=== PATIENT | female | born 1985 | race Caucasian/White ===

== ENCOUNTER 2016-07-11 09:29 | Emergency (ER) | payer BC, MEDICAID, OTHER ==
[2016-07-11 09:45] VITALS: RESP 16; TEMP 98.8
[2016-07-11] MEDS ORDERED: KETOROLAC 60 MG/2 ML VIAL IM ONE (09:46)
--- NOTE | 2016-07-11 10:00 | PDOC ---
Back Pain / Injury HPI - General Chief Complaint: Neck / Back Complaint Stated Complaint: BACK PAIN Date Seen by Provider: 07/11/16 Time Seen by Provider: 09:45 Source: Patient Exam Limitations: POSITIVE: No limitations Nurse's Notes Reviewed & Considered: Yes - History of Present Illness Initial Comments: The patient is a 31-year-old female who presents to the emergency department with low back pain. She states that yesterday evening she bent over to replace a toilet paper roll when she developed a pain in her lower back. This has progressively worsened to the point where she can barely move. She states that off and on for the past year and a half she has had some problems with low back pain and stiffness. She has been seeing a chiropractor intermittently. She states that she has never had pain to this degree. Her pain is localized to her lower back and is slightly more prominent on the left side this morning. She does not have any radiation of pain into her legs and denies any numbness, tingling or weakness in her legs. She states that she is having a difficult time moving her leg secondary to pain. She denies any urinary symptoms or difficulty with urination. She has not had any other systemic symptoms. She has no prior history of back surgery. She has been taking ibuprofen and Tylenol without any pain relief. Her pain is primarily worsened with any attempts at bending or movement of her legs. She also has pain with sitting. - Patient Home Medications Home Medications: Home Medications Acetaminophen [Tylenol] 1,000 mg PO Q4H PRN PRN 07/11/16 Cyclobenzaprine HCl [Flexeril] 10 mg PO TID PRN #20 tab 07/11/16 Diclofenac Sodium [Voltaren] 75 mg PO Q12H PRN #20 tablet. 07/11/16 HYDROcodone/APAP 5/325 Tab [Halliday 5/325 Tab] 1 each PO Q6H PRN #10 tablet Ibuprofen 800 mg PO Q6H PRN PRN 07/11/16 - Patient Allergies Allergies/Adverse Reactions: Allergies Allergy/AdvReac Type Severity Reaction Status Date / Time sulfamethoxazole Allergy hives Verified 07/11/16 09:37 [From Bactrim] trimethoprim [From Bactrim] Allergy hives Verified 07/11/16 09:37 Past Medical History - heen HEENT History: Denies History Cardiovascular History: Denies History Respiratory History: Denies History Gastrointestinal History: Denies History Genitourinary History: Denies History Endocrine History: Denies History Musculoskeletal History: Denies History Neurological History: Denies History Blood Disorders: Denies History Psychiatric History: Denies History Female Reproductive History: Denies History LMP: 07/03/16 Obstetrical History: Denies History Cancer History: Denies History In Past Year Been Physically Harmed or Verbally Threatened: No History of MDRO: No Tobacco Use: Never Smoker Alcohol Use: Rarely Substance Use Type: None Previous Surgical History: Yes Type / Date of Surgery: BREAST AUGMENTATION Significant Family History: No pertinent family hx Past Medical History Reviewed: Reviewed - No Changes ROS - Limitations ROS Limitations: No Limitations Constitution: REPORTS: Chills (She did have some chills associated with significant pain last night). DENIES: Fever Cardiovascular: REPORTS: Denies Cardiac Symptoms Respiratory: REPORTS: Denies Resp Symptoms Neurological: DENIES: Tingling, Numbness, Weakness Gastrointestinal: DENIES: Abdominal Pain, Nausea, Vomitting Musculoskeletal: REPORTS: Back Pain. DENIES: Lower Extremity Swelling Genitourinary: DENIES: Dysuria, Flank Pain, Hematuria, Difficulty Urinating Eyes: REPORTS: Denies Symptoms ENT: REPORTS: Denies Symptoms Skin: DENIES: Rash Back Physical Assessment - General Appearance General Appearance: REPORTS: Alert, Cooperative, No Acute Distress - HEENT HEENT: POSITIVE: Head Inspection Nml - Neck Neck: POSITIVE: Painless ROM, Trachea Midline - Respiratory / CVS Respiratory / CVS: POSITIVE: Breath Sounds Normal, No Respiratory Distress, Heart Sounds Normal, Regular Rate/Rhythm - Abdomen Abdomen: Denies Tenderness: (All Quadrants), No Distention: (All Quadrants) - Back Back: REPORTS: Normal Inspection, No CVA Tenderness, Other (Her lower spine is not really tender to palpation and her pain is primarily elicited with movement) - Skin Skin: REPORTS: Intact, No Rash - Extremities Extremity Assessment: No Edema: (ALL) - Neurological / Psychological Neuro / Psych: POSITIVE: Oriented X3, Motor Normal, Sensation Normal, Other ( She has no motor weakness or sensory loss in the lower extremities, she does have increased lower back pain with flexion at the knee against resistance bilaterally, some pain with lifting her left leg off the table however no radicular symptoms) Reflexes: Achilles (R): 3+, Achilles (L): 3+, Patellar (R): 3+, Patellar (L): 3+ Back Progress - Results Reviewed by me Xrays/CTs/US Reviewed: Yes Radiology Findings: X-ray of the lumbar spine reveals a the curvature of the lower spine, she does have disc space narrowing at the L5-S1 level with some degenerative changes in the lower lumbar region, no acute fracture. Lab Results:: Laboratory Results 07/11/16 Range/Units 10:36 Ur Collection Type Clean catch urine Urine Color Yellow Urine Clarity Clear (CLEAR) Urine pH 6.0 (5.0-8.5) Ur Specific [place] 1.020 (1.005-1.030) Urine Protein Trace (NEG) mg/dl Urine Glucose (UA) Negative (NEG) mg/dL Urine Ketones Negative (NEG) Urine Occult Blood Small H (NEG) Urine Nitrate Negative (NEG) Urine Bilirubin Negative (NEG) Urine Urobilinogen 0.2 (0.2) EU/dL Ur Leukocyte Esterase Negative (NEG) Urine RBC 3-6 (NONE) /hpf Urine WBC 1-3 (NONE) Ur Squamous Epith Cells Few (NONE) Ur Renal Epithelial Cell None (NONE) Urine Crystals None Urine Bacteria Few (NONE) Urine Casts None (NONE) Urine Mucus Few (NONE) Urine Trichomonas None (NONE) Urine Yeast None (NONE) Ur Culture Indicated? Culture not set - Patient's Progress MDM / ED Course: The patient did receive Toradol 60 mg and Norflex 60 mg IM. She was starting to get some slight relief. X-ray findings were discussed with the patient. At this point I would recommend continuation of chiropractor and/or trial of physical therapy. She was also prescribed Voltaren 75 mg twice a day as an anti -inflammatory, Flexeril 10 mg every 8 hours as needed for pain/spasm as well as Halliday 5/325 one every 6 hours as needed for pain unrelieved with other medications. She is advised return to the emergency room if she develops increased pain, numbness or weakness in her legs, fever, any worsening or change in symptoms. She will follow-up with her primary care provider in 3-5 days. - Consult Counseled: POSITIVE: Patient, RE: Radiology Results, RE: DX, RE: Need for F/U Patient Care Time - Estimated PCT Patient Care Time (In Minutes): 15 Vital Signs - Recent Vital Signs Vital Signs: Vital Signs (Last 8 hours) Temp Pulse Resp BP Pulse Ox 07/11/16 09:40 98.8 F 106 H 16 116/95 96 - VS Reviewed Vital Signs Reviewed: Yes Discharge Clinical Impression: Acute low back pain Discharge Disposition: Discharged to Home Condition: Stable Prescriptions / Orders: Cyclobenzaprine HCl [Flexeril] 10 mg PO TID PRN #20 tab PRN Reason: Spasms HYDROcodone/APAP 5/325 Tab [Halliday 5/325 Tab] 1 each PO Q6H PRN #10 tablet PRN Reason: Pain Diclofenac Sodium [Voltaren] 75 mg PO Q12H PRN #20 tablet. PRRivka Reason: Pain Patient Instructions Given at Discharge: Back Pain (ED) Additional Instructions: The x-ray of your lower spine does reveal some degenerative disc disease at the L5-S1 level, there is also some curvature of the lower spine which may be secondary to current pain and spasm or could represent some minor scoliosis. Recommend Voltaren 75 mg twice a day as an anti-inflammatory. In addition you have been prescribed Flexeril 10 mg every 8 hours as needed for spasm/pain. You 've also been prescribed Halliday 5/325 which he can take one every 4-6 hours as needed for severe pain unrelieved with the other medication. Would recommend continued chiropractor and/or physical therapy. Return to the emergency room if increased pain, fever, numbness or weakness in your legs, any worsening or change in symptoms. Recommend follow-up with primary care in 3-5 days. Follow Up With: CONCHA OSEI FNP [Primary Care Provider] -
[2016-07-11 10:50] LABS: BILIRUBIN,URINE NEGATIVE (NEG); CLARITY,URINE CLEAR (CLEAR); COLOR,URINE YELLOW; GLUCOSE, URINE (UA) NEGATIVE (NEG); NITRATE,URINE NEGATIVE (NEG); OCCULT BLOOD,URINE SMALL (NEG); PROTEIN,URINE TRACE mg/dl (NEG); URINE SAMPLE TYPE CLEAN CATCH URINE
[2016-07-11 10:51] LABS: BACTERIA,URINE FEW; SQUAMOUS EPITHELIAL CELL,UR FEW; UROBILINOGEN,URINE 0.2 EU/dL (0.2)
--- NOTE | 2016-07-11 10:55 | DI ---
XR L-SPINE 2-3 VW,07/11/2016 9:47 AM: Clinical History: Low back pain Previous Exam: None at this facility. Findings: AP and lateral views of the lumbar spine are obtained, and demonstrate near complete loss of interver tebral disc height at the L5/S1 level. There is also a small calcification within the inferior pole of the left nephrogram measuring 6 mm. There is some dextroscoliosis of the lumbar spine centered at the L4 level. Moderate stool seen throughout the colon. There is a intrauterine device seen within the deep pelvis. Impression: Degenerative disc disease of the L5/S1 level. 6 mm calcification overlying the inferior pole left kidney most consistent with a renal parenchymal s tone.
== END 2016-07-11 10:51 | disposition home or self-care (01) ==
LOC: ER 09:29
DX: M54.5 Low back pain (principal); M51.37 Other intervertebral disc degeneration, lumbosacral region
CPT/HCPCS: 72100; 81001; 81003; 96372; 99283 ×2; J1885; J2360

== ENCOUNTER → 2016-12-05 | Outpatient (CLI) | payer OTHER ==
--- NOTE | 2016-12-05 12:12 | DI ---
History: Breast lump, right side Comparison: None Findings: In the 8 to 9:00 position of the breast, there is a 0.7 x 0.4 cm cystic lesion, and a 0.4 x 0.4 cm cy stic lesion. The juárez of both lesions are imperceptible, and the lesions are anechoic. There is through transmiss ion demonstrated the larger of the 2 lesions. I cannot see through transmission of the smaller lesion, but accurate sonographic evaluation of a 4 mm cystic lesion is difficult. There is no posterior shadowing, and I believe that this likely repres ents a cyst which can safely be followed. There are no echogenic lesions. Impression: 0.7 x 0.4 cm benign cyst in the 8 to 9:00 position of the breast. 0.4 x 0.4 cm cystic lesion in the 8 to 9:00 position of the breast. The lesion is anechoic, and thin walled, but I can see no through transmission. This likely represents a small cyst, but sonographic e valuation of the lesion is small can be equivocal. Followup ultrasound examination in 3 months is rec ommended for evaluation.
== END ==
LOC: US 11:04
PROVIDERS: ATTEND Nurse Practitioner Family
DX: N63 Unspecified lump in breast (principal); N60.01 Solitary cyst of right breast
CPT/HCPCS: 76641